=== PATIENT | female | born 1990 | race Caucasian/White ===

== ENCOUNTER 2018-08-12 22:25 | Inpatient (IN) | payer OTHER ==
[2018-08-12] MEDS: BETAMET NA PHOS/AC(6 MG/ML) 2 ML INJ SYG IM ×2 (00:45→02:15)
[2018-08-13 00:30] LABS: ADD MAN DIFF? NO
[2018-08-13 00:35] LABS: BASOPHIL # 0.1 10^3/ul (0.0-0.1); BASOPHILS % 0.7 % (0.0-2.0); EOSINOPHILS # 0.1 10^3/ul (0.0-0.5); HEMATOCRIT 26.6 % (37.0-47.0); HEMOGLOBIN 8.5 g/dl (12.0-16.0); LYMPHOCYTES # 2.5 10^3/ul (0.8-2.9); LYMPHOCYTES % 20.5 % (15.0-51.0); MEAN CORPUSCULAR HEMOGLOBIN 28.6 pg (29.0-33.0); MEAN CORPUSCULAR VOLUME 89.6 fl (82.0-101.0); MEAN PLATELET VOLUME 10.7 fl (7.4-10.4); MONOCYTE # 1.1 10^3/ul (0.3-0.9); MONOCYTES % 9.3 % (0.0-11.0); NEUTROPHIL # 7.7 10^3/ul (1.6-7.5); NEUTROPHILS % 64.6 % (39.0-77.0); PLATELET COUNT 214 10^3/UL (140-415); RED BLOOD COUNT 2.97 10^6/ul (4.20-5.40); RED CELL DISTRIBUTION WIDTH 13.6 % (11.5-14.5)
[2018-08-13 00:50] LABS: ADD UMIC YES; UR AMORPHOUS CRYSTAL FEW /HPF (NONE SEEN); UR ASCORBIC ACID NEGATIVE (NEGATIVE); UR BILIRUBIN (Dip) NEGATIVE (NEGATIVE); UR BLOOD (Dip) 1+ mg/dL (NEGATIVE); UR CLARITY SLIGHTLY CLOUDY (CLEAR); UR COLOR YELLOW (YELLOW); UR GLUCOSE (Dip) NEGATIVE (NEGATIVE); UR KETONES (Dip) NEGATIVE (NEGATIVE); UR LEUKOCYTE ESTERASE (Dip) TRACE Leu/ul (NEGATIVE); UR MUCUS FEW /HPF (NONE SEEN); UR NITRITE (Dip) NEGATIVE (NEGATIVE); UR RBC 26 /HPF (0-5); UR SPECIFIC GRAVITY (Dip) 1.014 (1.003-1.030); UR SQUAMOUS EPITHELIAL CELL FEW /HPF (FEW); UR TOTAL PROTEIN (Dip) NEGATIVE (NEGATIVE); UR UROBILINOGEN (Dip) 1+ mg/dL (NEGATIVE); UR WBC 3 /HPF (0-5)
[2018-08-13 01:01] LABS: ALANINE AMINOTRANSFERASE 11 IU/L (13-69); ALBUMIN 3.3 g/dl (3.3-4.9); ALBUMIN/GLOBULIN RATIO 1.13; ALKALINE PHOSPHATASE 110 IU/L (42-121); ANION GAP 6 (5-13); ASPARTATE AMINO TRANSFERASE 14 IU/L (15-46); BILIRUBIN,INDIRECT 0.2 mg/dl (0-1.1); BILIRUBIN,TOTAL 0.2 mg/dl (0.2-1.3); BLOOD UREA NITROGEN 10 mg/dl (7-20); CALCIUM 9.3 mg/dl (8.4-10.2); CARBON DIOXIDE 24 mmol/L (21-31); CHLORIDE 107 mmol/L (97-110); CREATININE 0.46 mg/dl (0.44-1.00); Estimated GFR > 60 mL/min (>60); GLUCOSE 88 mg/dl (70-220); POTASSIUM 3.5 mmol/L (3.5-5.1); SODIUM 137 mmol/L (135-144); TOTAL PROTEIN 6.2 g/dl (6.1-8.1); URIC ACID 3.9 mg/dl (3.1-7.9)
[2018-08-13] MEDS: MAGNESIUM SULFATE 4 GM/100 ML 100 ML IV (01:22)
[2018-08-13] MEDS: MAGNESIUM SULFATE 20 GM/500 ML 500 ML IV ×2 (02:04→09:31)
[2018-08-13] MEDS: LACTATED RINGER'S 1,000 ML IV ×2 (03:06→16:53)
[2018-08-13] MEDS: BUTORPHANOL 2 MG INJ IV (05:45)
[2018-08-13 08:05] LABS: MAGNESIUM 5.9 mg/dl (1.7-2.5)
[2018-08-13] MEDS: PRENATAL VITAMIN PO (08:43)
[2018-08-13] MEDS: FERROUS SULFATE (EC) 325 MG TAB PO (08:44)
[2018-08-13] MEDS: BETAMET NA PHOS/AC(6 MG/ML) 2 ML INJ SYG IM (09:00)
[2018-08-13] MEDS ORDERED: ACETAMINOPHEN 325 MG TAB PO (09:00)
[2018-08-13] MEDS: ONDANSETRON 4 MG INJ IV (09:20)
[2018-08-13] MEDS: AMPICILLIN 1 GM/NS (PMX) 50 ML IVPB ×3 (09:26→22:27)
[2018-08-13] MEDS ORDERED: ACCU-CHEK XX (09:35)
[2018-08-13] MEDS ORDERED: GLUCOSE GEL 15 GRAM TUBE PO ×2 (11:00)
[2018-08-13] MEDS ORDERED: GLUCOSE GEL 15 GRAM TUBE BUCCAL (11:00)
[2018-08-13] MEDS ORDERED: GLUCAGON 1 MG INJ IM (11:00)
[2018-08-13] MEDS ORDERED: DEXTROSE 50% 50 ML SYRINGE IV ×2 (11:00)
[2018-08-13] MEDS ORDERED: INSULIN ASPART [NOVOLOG] 3 ML PEN SC (11:30)
[2018-08-13 13:31] LABS: MAGNESIUM 6.6 mg/dl (1.7-2.5)
[2018-08-13 15:22] LABS: RAPID PLASMA REAGIN NONREACTIVE (NR)
[2018-08-13 18:41] LABS: MAGNESIUM 5.5 mg/dl (1.7-2.5)
[2018-08-13] MEDS: ACCU-CHEK XX (19:41)
[2018-08-13] MEDS: INSULIN ASPART [NOVOLOG] 3 ML PEN SC ×2 (19:41→21:00)
[2018-08-14 01:42] LABS: MAGNESIUM 5.1 mg/dl (1.7-2.5)
[2018-08-14] MEDS: BETAMET NA PHOS/AC(6 MG/ML) 2 ML INJ SYG IM (02:04)
[2018-08-14] MEDS: MAGNESIUM SULFATE 20 GM/500 ML 500 ML IV ×2 (02:10)
[2018-08-14] MEDS: AMPICILLIN 1 GM/NS (PMX) 50 ML IVPB ×2 (05:59→13:34)
[2018-08-14] MEDS: LACTATED RINGER'S 1,000 ML IV (06:00)
[2018-08-14 06:53] LABS: MAGNESIUM 5.2 mg/dl (1.7-2.5)
[2018-08-14] MEDS: FERROUS SULFATE (EC) 325 MG TAB PO (08:59)
[2018-08-14] MEDS: PRENATAL VITAMIN PO (09:00)
[2018-08-14 12:19] LABS: MAGNESIUM 5.1 mg/dl (1.7-2.5)
== END 2018-08-14 14:54 | disposition home or self-care (01) | DRG 833 ==
LOC: OBT 22:25 → L-D 22:25 → OBT 23:00 → L-D 23:00
DX: O60.03 Preterm labor without delivery, third trimester (principal); O24.410 Gestational diabetes mellitus in pregnancy, diet controlled; O34.219 Maternal care for unspecified type scar from previous cesarean delivery; Z3A.30 30 weeks gestation of pregnancy
CPT/HCPCS: 76815; 76817; 76818; 80053; 81001; 82731; 82962; 83735; 84560; 85025; 86592; 86850; 86900; 86901; 87086

== ENCOUNTER 2018-09-26 19:06 | Inpatient (IN) | payer OTHER ==
[2018-09-26] MEDS ORDERED: METHYLERGONOVINE 0.2 MG INJ IM (21:30)
[2018-09-26] MEDS: LACTATED RINGER'S 500 ML IV (21:30)
[2018-09-26] MEDS ORDERED: CARBOPROST 250 MCG INJ IM (21:30)
[2018-09-26] MEDS ORDERED: OXYTOCIN 30 UNITS/LR 500 ML IV (21:30)
[2018-09-26] MEDS ORDERED: MISOPROSTOL 200 MCG TAB PR (21:30)
[2018-09-26 22:40] LABS: WHITE BLOOD COUNT 11.7 10^3/ul (4.8-10.8)
[2018-09-26 22:40] LABS: ADD MAN DIFF? NO; BASOPHIL # 0.1 10^3/ul (0.0-0.1); BASOPHILS % 0.5 % (0.0-2.0); EOSINOPHILS # 0.1 10^3/ul (0.0-0.5); EOSINOPHILS % 0.8 % (0.0-7.0); HEMATOCRIT 26.5 % (37.0-47.0); HEMOGLOBIN 8.4 g/dl (12.0-16.0); LYMPHOCYTES # 2.5 10^3/ul (0.8-2.9); LYMPHOCYTES % 21.7 % (15.0-51.0); MEAN CORPUSCULAR HEMOGLOBIN 26.8 pg (29.0-33.0); MEAN CORPUSCULAR HGB CONC 31.7 g/dl (32.0-37.0); MEAN CORPUSCULAR VOLUME 84.4 fl (82.0-101.0); MEAN PLATELET VOLUME 10.9 fl (7.4-10.4); MONOCYTE # 0.8 10^3/ul (0.3-0.9); MONOCYTES % 7.2 % (0.0-11.0); NEUTROPHILS % 68.3 % (39.0-77.0); PLATELET COUNT 208 10^3/UL (140-415); RED BLOOD COUNT 3.14 10^6/ul (4.20-5.40)
[2018-09-26 23:00] LABS: INR 0.91; PROTIME 12.4 Sec (11.9-14.9)
[2018-09-26 23:01] LABS: PARTIAL THROMBOPLASTIN TIME 24.4 Sec (23.0-35.0)
[2018-09-27 00:05] LABS: HEPATITIS B SURFACE ANTIGEN NEGATIVE (NEGATIVE)
[2018-09-27] MEDS: CITRIC ACID/NA CITRATE 30 ML CUP PO (01:00)
[2018-09-27] MEDS: FAMOTIDINE 20 MG INJ IV (01:00)
[2018-09-27] MEDS: METOCLOPRAMIDE 10 MG INJ IM (01:00)
[2018-09-27] MEDS: METOCLOPRAMIDE 10 MG INJ IV (01:00)
[2018-09-27] MEDS ORDERED: morphine SULFATE/PF (10 MG/10 ML) INJ (01:25)
[2018-09-27] MEDS ORDERED: ONDANSETRON 4 MG INJ (01:50)
[2018-09-27] MEDS ORDERED: PROCHLORPERAZINE 10 MG INJ IV (02:00)
[2018-09-27] MEDS ORDERED: FENTAnyl 50 MCG/ML VIAL IV ×3 (02:00)
[2018-09-27] MEDS ORDERED: MEPERIDINE 25 MG INJ IV (02:00)
[2018-09-27] MEDS ORDERED: HYDROmorphONE 1 MG/5 ML IV SYRINGE IV ×3 (02:00)
[2018-09-27] MEDS ORDERED: DIPHENHYDRAMINE 50 MG INJ IV ×2 (02:00→03:00)
[2018-09-27] MEDS ORDERED: MIDAZOLAM 1 MG/ML 2 ML INJ (02:03)
[2018-09-27] MEDS ORDERED: PHENYLephrine (100 MCG/ML) 10ML SYG (02:18)
[2018-09-27] MEDS ORDERED: OXYTOCIN 30 UNITS/LR 500 ML IV ×2 (02:18→03:00)
[2018-09-27] MEDS: LACTATED RINGER'S 1,000 ML IV ×5 (02:29→16:55)
[2018-09-27] MEDS: OXYTOCIN 30 UNITS/LR 500 ML IV ×2 (02:32→06:37)
[2018-09-27] MEDS ORDERED: HYDROmorphONE 0.5 MG/0.5 ML SYG IV (03:00)
[2018-09-27] MEDS ORDERED: CARBOPROST 250 MCG INJ IM (03:00)
[2018-09-27] MEDS ORDERED: METHYLERGONOVINE 0.2 MG TAB PO (03:00)
[2018-09-27] MEDS ORDERED: MISOPROSTOL 200 MCG TAB PR (03:00)
[2018-09-27] MEDS ORDERED: METHYLERGONOVINE 0.2 MG INJ IM (03:00)
[2018-09-27] MEDS ORDERED: ZOLPIDEM 5 MG TAB PO (03:00)
[2018-09-27] MEDS ORDERED: NALOXONE (0.4 MG/ML) INJ IV (03:00)
[2018-09-27] MEDS: CEFAZOLIN 2 GM/50 ML (PMX) 50 ML IVPB (03:21)
[2018-09-27] MEDS: HYDROmorphONE 0.5 MG/0.5 ML SYG IV (03:47)
[2018-09-27] MEDS: ONDANSETRON 4 MG INJ IV ×2 (04:31→06:38)
[2018-09-27] MEDS: SENNA/DOCUSATE NA (8.6MG/50MG) TAB PO ×2 (08:54→21:08)
[2018-09-27] MEDS: KETOROLAC 30 MG INJ IV (14:11)
[2018-09-27 15:08] LABS: RAPID PLASMA REAGIN NONREACTIVE (NR)
[2018-09-28] MEDS: KETOROLAC 30 MG INJ IV (00:41)
[2018-09-28] MEDS: LACTATED RINGER'S 1,000 ML IV ×3 (05:10→21:10)
[2018-09-28] MEDS: HYDROCODONE/APAP (5/325) TAB PO ×3 (08:13→20:02)
[2018-09-28] MEDS: SENNA/DOCUSATE NA (8.6MG/50MG) TAB PO ×2 (08:13→20:02)
[2018-09-28] MEDS ORDERED: HYDROCODONE/APAP (5/325) TAB PO (08:30)
[2018-09-28 08:34] LABS: ADD MAN DIFF? NO
[2018-09-28 08:47] LABS: BASOPHIL # 0.1 10^3/ul (0.0-0.1); BASOPHILS % 0.4 % (0.0-2.0); EOSINOPHILS # 0.4 10^3/ul (0.0-0.5); EOSINOPHILS % 2.4 % (0.0-7.0); HEMATOCRIT 23.8 % (37.0-47.0); HEMOGLOBIN 7.5 g/dl (12.0-16.0); LYMPHOCYTES # 1.9 10^3/ul (0.8-2.9); LYMPHOCYTES % 12.7 % (15.0-51.0); MEAN CORPUSCULAR HEMOGLOBIN 26.1 pg (29.0-33.0); MEAN CORPUSCULAR HGB CONC 31.5 g/dl (32.0-37.0); MEAN CORPUSCULAR VOLUME 82.9 fl (82.0-101.0); MEAN PLATELET VOLUME 11.2 fl (7.4-10.4); MONOCYTE # 1.1 10^3/ul (0.3-0.9); MONOCYTES % 6.9 % (0.0-11.0); NEUTROPHIL # 11.6 10^3/ul (1.6-7.5); NEUTROPHILS % 76.5 % (39.0-77.0); PLATELET COUNT 185 10^3/UL (140-415); RED BLOOD COUNT 2.87 10^6/ul (4.20-5.40); RED CELL DISTRIBUTION WIDTH 15.5 % (11.5-14.5)
[2018-09-28 08:47] LABS: WHITE BLOOD COUNT 15.1 10^3/ul (4.8-10.8)
[2018-09-28 09:14] LABS: ANION GAP 5 (5-13); BLOOD UREA NITROGEN 6 mg/dl (7-20); CARBON DIOXIDE 25 mmol/L (21-31); CHLORIDE 104 mmol/L (97-110); CREATININE 0.63 mg/dl (0.44-1.00); Estimated GFR > 60 mL/min (>60); GLUCOSE 69 mg/dl (70-220); POTASSIUM 3.9 mmol/L (3.5-5.1); SODIUM 134 mmol/L (135-144)
[2018-09-28] MEDS: IBUPROFEN 800 MG TAB PO (21:15)
[2018-09-29] MEDS: HYDROCODONE/APAP (5/325) TAB PO ×4 (03:38→23:49)
[2018-09-29] MEDS: LANOLIN HPA 1 PKT TOP (03:46)
[2018-09-29] MEDS: IBUPROFEN 800 MG TAB PO ×3 (05:26→17:57)
[2018-09-29] MEDS: LACTATED RINGER'S 1,000 ML IV ×2 (06:26→20:06)
[2018-09-29] MEDS: SENNA/DOCUSATE NA (8.6MG/50MG) TAB PO ×2 (09:00→21:40)
[2018-09-30] MEDS: IBUPROFEN 800 MG TAB PO ×2 (03:36→10:23)
[2018-09-30] MEDS: HYDROCODONE/APAP (5/325) TAB PO ×2 (05:55→13:22)
[2018-09-30 08:42] LABS: ABNORMAL IP MESSAGE 1
[2018-09-30 08:50] LABS: HEMATOCRIT 20.6 % (37.0-47.0); MEAN CORPUSCULAR HEMOGLOBIN 26.5 pg (29.0-33.0); MEAN CORPUSCULAR HGB CONC 31.6 g/dl (32.0-37.0); MEAN CORPUSCULAR VOLUME 84.1 fl (82.0-101.0); MEAN PLATELET VOLUME 10.7 fl (7.4-10.4); NUCLEATED RED BLOOD CELLS% 0.2 /100WBC (0.0-0.0); PLATELET COUNT 180 10^3/UL (140-415); RED BLOOD COUNT 2.45 10^6/ul (4.20-5.40); RED CELL DISTRIBUTION WIDTH 15.6 % (11.5-14.5)
[2018-09-30 08:50] LABS: WHITE BLOOD COUNT 10.4 10^3/ul (4.8-10.8)
[2018-09-30] MEDS: MEASLES,MUMPS,RUBELLA VACCINE INJ SC* (09:00)
[2018-09-30 09:18] LABS: POSITIVE DIFF @See below
[2018-09-30 09:20] LABS: ADD MAN DIFF? YES; HEMOGLOBIN 6.5 g/dl (12.0-16.0)
[2018-09-30 10:17] LABS: ANISOCYTOSIS 2+ (0-0); BAND NEUTROPHILS #M 0.8 10^3/ul (0.0-0.6); BAND NEUTROPHILS % (M) 8 % (0-4); EOSINOPHILS % (M) 4 % (0-7); GIANT THROMBO% (M) 3 % (0-0); LYMPHOCYTES #M 1.7 10^3/ul (0.8-2.9); LYMPHOCYTES % (M) 17 % (15-51); MICROCYTOSIS 2+ (0-0); MONOCYTE #M 0.3 10^3/ul (0.3-0.9); MONOCYTES % (M) 3 % (0-11); OVALOCYTES 1+ (0-0); PLATELET ESTIMATE NORMAL; POLYCHROMASIA 3+ (0-0); SEG NEUT #M 7.2 10^3/ul (1.6-7.5); SEGMENTED NEUTROPHILS (M) % 68 % (39-77); SMUDGE%M 5 % (0-0)
[2018-09-30] MEDS: SENNA/DOCUSATE NA (8.6MG/50MG) TAB PO (10:55)
[2018-09-30] MEDS: DIPHTH/TET/ACEL PERTUSS (ADULT) 0.5 ML VIAL IM* (13:45)
== END 2018-09-30 15:38 | disposition home or self-care (01) | DRG 788 ==
LOC: OBT 19:06 → L-D 09-27 01:08 → PP1 09-27 04:51 → OBT 20:55 → L-D 20:55
PROVIDERS: Obstetrics & Gynecology
PROC: 10D00Z1 Extraction of Products of Conception, Low, Open Approach (ICD-10-PCS; principal; 2018-09-27 01:30)
DX: O34.211 Maternal care for low transverse scar from previous cesarean delivery (principal); Z3A.37 37 weeks gestation of pregnancy; Z37.0 Single live birth; Z91.19 Patient's noncompliance with other medical treatment and regimen; O99.013 Anemia complicating pregnancy, third trimester
CPT/HCPCS: 76815; 80048; 85025; 85610; 85730; 86592; 86850; 86900; 86901; 86920; 87340; 90715; 99464